=== PATIENT | female | born 1995 | race Caucasian/White ===

== ENCOUNTER 2017-09-02 10:34 | Emergency (ER) | payer MEDICAID ==
[~2017-09-02] VITALS: Ht 175.3 cm; Wt 136.1 kg
[~2017-09-02 10:34] MED LIST: AMOX500 PO; CODACEE120 PO; CRUTCH2 USE; HYDACE5 PO; MEDR150I IM; PENVK250 PO; PHENA100 PO; Percocet 5-3251 EACH PO; Prednisone20 MG PO; Veetids 500500 MG PO; Zithromax250 MG PO
[2017-09-02] MEDS ORDERED: SERT50 PO (10:55)
[2017-09-02] MEDS ORDERED: CLON.1 PO (10:55)
[2017-09-02] MEDS ORDERED: IBUP800 PO (11:54)
== END 2017-09-02 12:02 | disposition home or self-care (01) ==
LOC: ER 10:34
DX: S60.221A Contusion of right hand, initial encounter (principal); Z79.899 Other long term (current) drug therapy; W22.8XXA Striking against or struck by other objects, initial encounter
CPT/HCPCS: 73110; 73130; 99283

== ENCOUNTER 2018-04-19 19:41 | Inpatient (IN) | payer OTHER ==
[~2018-04-19] VITALS: Ht 175.3 cm; Wt 127.0 kg
[~2018-04-19 19:41] MED LIST changes: +CLON.1 PO; +IBUP800 PO; +SERT50 PO
[2018-04-19] MEDS ORDERED: TRAZ50 PO (20:06)
[2018-04-19 20:34] LABS: Source, Urine Voided
[2018-04-19 20:40] LABS: Appearance, Urine Clear (Clear); Bilirubin, Urine Neg (Neg); Blood, Urine Neg (Neg); Color, Urine Yellow (P-Yellow); Glucose Qualitative, Urine Neg (Neg); Ketones, Urine Neg (Neg); Leukocyte Esterase, Urine Neg (Neg); Nitrite, Urine Neg (Neg); Protein, Urine Neg (Neg); Specific Gravity, Urine 1.015 (1.003-1.022); Urobilinogen, Urine NORM (Normal)
[2018-04-19 20:52] LABS: U Amphetamine Screen Not Detected; U Barbituate Screen Not Detected; U Benzodiazapine Screen Not Detected; U Cocaine Screen Not Detected; U Methamphetamine Screen Not Detected
[2018-04-19 20:53] LABS: U Buprenorphine Screen Not Detected; U Cannabinoids Screen Not Detected; U Methadone Screen Not Detected; U Opiates Screen Not Detected; U Oxycodone Screen Not Detected; U Phencyclidine Screen Not Detected; U Propoxyphene Screen Not Detected
[2018-04-19 21:19] LABS: BASOPHILS ABSOLUTE AUTO 0.07 K/mm3 (0.00-0.23); BASOPHILS PERCENT AUTO 1 % (0-2); EOSINOPHILS ABSOLUTE AUTO 0.03 K/mm3 (0.00-0.68); EOSINOPHILS PERCENT AUTO 0 % (0-6); Hematocrit 48.3 % (33.0-51.0); Hemoglobin 15.8 g/dL (11.5-16.0); IMMATURE GRAN ABSOLUTE AUTO 0.02 K/mm3 (0.00-0.10); IMMATURE GRAN PERCENT AUTO 0 % (0-1); LYMPHOCYTES ABSOLUTE AUTO 1.82 K/mm3 (0.84-5.20); LYMPHOCYTES PERCENT AUTO 20 % (21-46); MONOCYTES ABSOLUTE AUTO 0.48 K/mm3 (0.16-1.47); MONOCYTES PERCENT AUTO 5 % (4-13); Mean Corpuscular HGB 30.5 pg (26.0-34.0); Mean Corpuscular HGB Conc 32.7 g/dL (31.5-36.5); Mean Corpuscular Volume 93 fL (80-100); NEUTROPHILS ABSOLUTE AUTO 6.52 K/mm3 (1.96-9.15); NEUTROPHILS PERCENT AUTO 73 % (41-73); Platelet Count 373 K/mm3 (150-400); RDW Coefficient Variation 11.9 % (11.7-14.2); Red Blood Cell Count 5.18 M/mm3 (3.80-5.20); White Blood Cell Count 8.94 K/mm3 (4.00-11.30)
[2018-04-19 21:43] LABS: Alanine Aminotransfer (ALT/SGP 77 U/L (12-78); Albumin, Blood 4.3 g/dL (3.4-5.0); Albumin/Globulin Ratio 0.9 (0.8-1.8); Alk Phos 146 U/L (50-136); Anion Gap 11 mmol/L (6-16); Aspartate Aminotrans (AST/SGOT 44 U/L (12-37); Bilirubin, Total 0.2 mg/dL (0.1-1.0); Blood Urea Nitrogen 3 mg/dL (8-24); Bun/Creatinine Ratio 5.7 (12.0-20.0); CO2, Blood 23 mmol/L (21-32); Chloride, Blood 110 mmol/L (98-108); Creatinine, Blood 0.53 mg/dL (0.40-1.00); Ethanol (Alcohol), Blood, Med 231 mg/dL; Globulin, Blood 4.7 g/dL (2.2-4.0); Glomerular Filtration Rate >60 (60-); Glucose, Blood 102 mg/dL (70-99); Potassium, Blood 3.4 mmol/L (3.5-5.5); Salicylate <1.7 mg/dL (2.8-20.0); Sodium, Blood 144 mmol/L (136-145)
[2018-04-19 21:48] LABS: Acetaminophen, Random <2.0 ug/mL (10.0-30.0)
[2018-04-20 01:34] LABS: Alanine Aminotransfer (ALT/SGP 73 U/L (12-78); Albumin, Blood 4.1 g/dL (3.4-5.0); Alk Phos 135 U/L (50-136); Anion Gap 9 mmol/L (6-16); Aspartate Aminotrans (AST/SGOT 42 U/L (12-37); Bilirubin, Total 0.3 mg/dL (0.1-1.0); Blood Urea Nitrogen 2 mg/dL (8-24); Bun/Creatinine Ratio 4.2 (12.0-20.0); CO2, Blood 23 mmol/L (21-32); CPK Creatine Kinase 126 U/L (26-193); Calcium, Blood 8.4 mg/dL (8.5-10.1); Chloride, Blood 110 mmol/L (98-108); Creatinine, Blood 0.48 mg/dL (0.40-1.00); Globulin, Blood 4.3 g/dL (2.2-4.0); Glomerular Filtration Rate >60 (60-); Glucose, Blood 106 mg/dL (70-99); Magnesium, Blood 2.3 mg/dL (1.6-2.4); Potassium, Blood 3.9 mmol/L (3.5-5.5); Sodium, Blood 142 mmol/L (136-145); Total Protein, Blood 8.4 g/dL (6.4-8.2)
[2018-04-20 06:07] LABS: International Normalized Ratio 0.93; Prothrombin Time Results 9.8 Sec (9.7-11.5)
== END 2018-04-21 14:10 | disposition home or self-care (01) | DRG 918 ==
LOC: ER 19:41 → ERHOLD 22:19
PROVIDERS: Emergency Medicine; Nurse Practitioner Acute Care; ADMIT Internal Medicine
DX: T43.222A Poisoning by selective serotonin reuptake inhibitors, intentional self-harm, initial encounter (principal); Z68.41 Body mass index [BMI] 40.0-44.9, adult; E66.01 Morbid (severe) obesity due to excess calories; F10.20 Alcohol dependence, uncomplicated; F32.9 Major depressive disorder, single episode, unspecified; F17.210 Nicotine dependence, cigarettes, uncomplicated; Z79.899 Other long term (current) drug therapy
CPT/HCPCS: 36415; 80053; 81003; 81025; 82550; 83735; 84443; 85025; 85610; 93005; 93010; 96365; 96366; 96375; 99285-25; G0480; J2060; J2405; J3411; J3475; J3480; J7030; J7042; Q3014

== ENCOUNTER 2018-07-10 22:58 | Observation (INO) | payer OTHER ==
[~2018-07-10] VITALS: Ht 175.3 cm; Wt 113.4 kg
[~2018-07-10 22:58] MED LIST changes: +TRAZ50 PO
[2018-07-10 23:45] LABS: Source, Urine Clean Catch
[2018-07-10] MEDS ORDERED: AMPDEX10CR PO (23:48)
[2018-07-10 23:52] LABS: Appearance, Urine Clear (Clear); Bilirubin, Urine Neg (Neg); Blood, Urine Neg (Neg); Color, Urine Yellow (P-Yellow); Glucose Qualitative, Urine Neg (Neg); Ketones, Urine Neg (Neg); Leukocyte Esterase, Urine Neg (Neg); Nitrite, Urine Neg (Neg); Protein, Urine 2+ (Neg); Specific Gravity, Urine 1.005 (1.003-1.022); Urobilinogen, Urine NORM (Normal)
[2018-07-10 23:58] LABS: U Amphetamine Screen DETECTED; U Barbituate Screen Not Detected; U Benzodiazapine Screen Not Detected; U Buprenorphine Screen Not Detected; U Cannabinoids Screen Not Detected; U Cocaine Screen Not Detected; U Methadone Screen Not Detected; U Methamphetamine Screen Not Detected; U Opiates Screen Not Detected; U Oxycodone Screen Not Detected; U Phencyclidine Screen Not Detected; U Propoxyphene Screen Not Detected
[2018-07-10 23:59] LABS: BASOPHILS ABSOLUTE AUTO 0.09 K/mm3 (0.00-0.23); BASOPHILS PERCENT AUTO 1 % (0-2); EOSINOPHILS ABSOLUTE AUTO 0.06 K/mm3 (0.00-0.68); EOSINOPHILS PERCENT AUTO 1 % (0-6); Hematocrit 42.9 % (33.0-51.0); Hemoglobin 14.4 g/dL (11.5-16.0); IMMATURE GRAN ABSOLUTE AUTO 0.03 K/mm3 (0.00-0.10); IMMATURE GRAN PERCENT AUTO 0 % (0-1); LYMPHOCYTES ABSOLUTE AUTO 2.66 K/mm3 (0.84-5.20); LYMPHOCYTES PERCENT AUTO 28 % (21-46); MONOCYTES PERCENT AUTO 7 % (4-13); Mean Corpuscular HGB 29.4 pg (26.0-34.0); Mean Corpuscular HGB Conc 33.6 g/dL (31.5-36.5); Mean Corpuscular Volume 88 fL (80-100); Mean Platelet Volume 10.3 fL (9.1-12.4); NEUTROPHILS ABSOLUTE AUTO 5.99 K/mm3 (1.96-9.15); NEUTROPHILS PERCENT AUTO 63 % (41-73); Platelet Count 328 K/mm3 (150-400); RDW Coefficient Variation 12.2 % (11.7-14.2); Red Blood Cell Count 4.89 M/mm3 (3.80-5.20); White Blood Cell Count 9.53 K/mm3 (4.00-11.30)
[2018-07-10 23:59] LABS: Bacteria Few /hpf; Red Blood Cells, Urine 0-2 /hpf (0-2); Squamous Epithelial Cells Not Seen /hpf (Few); White Blood Cells, Urine 0-2 /hpf (0-5)
[2018-07-11 00:29] LABS: Alanine Aminotransfer (ALT/SGP 39 U/L (12-78); Albumin, Blood 4.2 g/dL (3.4-5.0); Alk Phos 111 U/L (50-136); Anion Gap 11 mmol/L (6-16); Aspartate Aminotrans (AST/SGOT 24 U/L (12-37); Bilirubin, Total 0.3 mg/dL (0.1-1.0); Blood Urea Nitrogen 3 mg/dL (8-24); Bun/Creatinine Ratio 5.2 (12.0-20.0); CO2, Blood 23 mmol/L (21-32); Calcium, Blood 8.7 mg/dL (8.5-10.1); Chloride, Blood 111 mmol/L (98-108); Creatinine, Blood 0.58 mg/dL (0.40-1.00); Ethanol (Alcohol), Blood, Med 291 mg/dL; Globulin, Blood 4.4 g/dL (2.2-4.0); Glomerular Filtration Rate >60 (60-); Glucose, Blood 115 mg/dL (70-99); Potassium, Blood 3.4 mmol/L (3.5-5.5); Salicylate <1.7 mg/dL (2.8-20.0); Sodium, Blood 145 mmol/L (136-145); Total Protein, Blood 8.6 g/dL (6.4-8.2)
[2018-07-11 00:40] LABS: Acetaminophen, Random <2.0 ug/mL (10.0-30.0)
== END 2018-07-11 09:56 | disposition home or self-care (01) ==
LOC: ER 22:58 → EOR 22:59
PROVIDERS: Physician Assistant; ADMIT Emergency Medicine
DX: F32.9 Major depressive disorder, single episode, unspecified (principal); F10.129 Alcohol abuse with intoxication, unspecified; Z79.899 Other long term (current) drug therapy; Y90.8 Blood alcohol level of 240 mg/100 ml or more
CPT/HCPCS: 80053; 81001; 81025; 84443; 85025; 99285; G0378; G0480; Q0163

== ENCOUNTER 2018-10-19 00:19 | Observation (INO) | payer OTHER ==
[~2018-10-19] VITALS: Ht 175.3 cm; Wt 113.4 kg
[~2018-10-19 00:19] MED LIST changes: +AMPDEX10CR PO
[2018-10-19 00:41] LABS: BASOPHILS ABSOLUTE AUTO 0.06 K/mm3 (0.00-0.23); BASOPHILS PERCENT AUTO 1 % (0-2); EOSINOPHILS ABSOLUTE AUTO 0.05 K/mm3 (0.00-0.68); EOSINOPHILS PERCENT AUTO 1 % (0-6); Hematocrit 42.2 % (33.0-51.0); IMMATURE GRAN ABSOLUTE AUTO 0.03 K/mm3 (0.00-0.10); IMMATURE GRAN PERCENT AUTO 0 % (0-1); LYMPHOCYTES ABSOLUTE AUTO 2.86 K/mm3 (0.84-5.20); LYMPHOCYTES PERCENT AUTO 37 % (21-46); MONOCYTES ABSOLUTE AUTO 0.63 K/mm3 (0.16-1.47); MONOCYTES PERCENT AUTO 8 % (4-13); Mean Corpuscular HGB Conc 33.2 g/dL (31.5-36.5); Mean Corpuscular Volume 87 fL (80-100); Mean Platelet Volume 10.3 fL (9.1-12.4); NEUTROPHILS ABSOLUTE AUTO 4.16 K/mm3 (1.96-9.15); NEUTROPHILS PERCENT AUTO 53 % (41-73); Platelet Count 315 K/mm3 (150-400); RDW Coefficient Variation 12.4 % (11.7-14.2); RDW Standard Deviation 39.6 fL (35.1-46.3); Red Blood Cell Count 4.83 M/mm3 (3.80-5.20); White Blood Cell Count 7.79 K/mm3 (4.00-11.30)
[2018-10-19] MEDS ORDERED: ESCI20 PO (00:41)
[2018-10-19 00:54] LABS: Source, Urine Clean Catch
[2018-10-19 00:57] LABS: Appearance, Urine Hazy (Clear); Bilirubin, Urine Neg (Neg); Blood, Urine 2+ (Neg); Color, Urine Yellow (P-Yellow); Glucose Qualitative, Urine Neg (Neg); Ketones, Urine Neg (Neg); Leukocyte Esterase, Urine 3+ (Neg); Nitrite, Urine Neg (Neg); Protein, Urine 3+ (Neg); Urobilinogen, Urine NORM (Normal)
[2018-10-19 01:04] LABS: Alanine Aminotransfer (ALT/SGP 34 U/L (12-78); Albumin, Blood 3.9 g/dL (3.4-5.0); Alk Phos 115 U/L (50-136); Anion Gap 13 mmol/L (6-16); Aspartate Aminotrans (AST/SGOT 31 U/L (12-37); Bilirubin, Total 0.2 mg/dL (0.1-1.0); Blood Urea Nitrogen 2 mg/dL (8-24); Bun/Creatinine Ratio 3.6 (12.0-20.0); CO2, Blood 19 mmol/L (21-32); Calcium, Blood 8.3 mg/dL (8.5-10.1); Chloride, Blood 110 mmol/L (98-108); Creatinine, Blood 0.56 mg/dL (0.40-1.00); Ethanol (Alcohol), Blood, Med 297 mg/dL; Globulin, Blood 4.1 g/dL (2.2-4.0); Glomerular Filtration Rate >60 (60-); Glucose, Blood 185 mg/dL (70-99); Potassium, Blood 2.8 mmol/L (3.5-5.5); Salicylate <1.7 mg/dL (2.8-20.0); Sodium, Blood 142 mmol/L (136-145); Thyroxine (T4) 9.5 ug/dL (4.8-13.9)
[2018-10-19 01:14] LABS: U Amphetamine Screen DETECTED; U Barbituate Screen Not Detected; U Benzodiazapine Screen Not Detected; U Buprenorphine Screen Not Detected; U Cannabinoids Screen Not Detected; U Cocaine Screen Not Detected; U Methadone Screen Not Detected; U Methamphetamine Screen Not Detected; U Opiates Screen Not Detected; U Oxycodone Screen Not Detected; U Phencyclidine Screen Not Detected; U Propoxyphene Screen Not Detected
[2018-10-19 01:14] LABS: Acetaminophen, Random <2.0 ug/mL (10.0-30.0)
[2018-10-19 01:15] LABS: Amorphous Light (0-Heavy); Bacteria Few /hpf; Red Blood Cells, Urine 0-2 /hpf (0-2); Squamous Epithelial Cells Few /hpf (Few)
== END 2018-10-19 13:35 | disposition home or self-care (01) ==
LOC: ER 00:19 → EOR 00:20
PROVIDERS: ADMIT Emergency Medicine
DX: S61.512A Laceration without foreign body of left wrist, initial encounter (principal); F10.129 Alcohol abuse with intoxication, unspecified; R00.0 Tachycardia, unspecified; E87.6 Hypokalemia; F32.9 Major depressive disorder, single episode, unspecified; F41.1 Generalized anxiety disorder; E66.9 Obesity, unspecified; Z79.899 Other long term (current) drug therapy; X78.1XXA Intentional self-harm by knife, initial encounter
CPT/HCPCS: 12002; 80053; 81001; 81025; 84436; 84443; 85025; 87086; 90471; 90714; 93005; 93010; 96372-59; 99285-25; G0378; G0480; J1200; J1630; J2060; Q3014

== ENCOUNTER 2020-04-03 13:40 | Emergency (ER) | payer OTHER ==
[~2020-04-03] VITALS: Ht 175.3 cm; Wt 108.9 kg
[~2020-04-03 13:40] MED LIST changes: +ESCI20 PO
[2020-04-03] MEDS ORDERED: OXYC5 PO (14:05)
== END 2020-04-03 14:27 | disposition home or self-care (01) ==
LOC: ER 13:40
DX: S00.11XA Contusion of right eyelid and periocular area, initial encounter (principal); Z79.899 Other long term (current) drug therapy; V49.50XA Passenger injured in collision with unspecified motor vehicles in traffic accident, initial encounter; Y92.410 Unspecified street and highway as the place of occurrence of the external cause
CPT/HCPCS: 99284

== ENCOUNTER 2021-12-12 10:46 | Emergency (ER) | payer OTHER ==
[~2021-12-12] VITALS: Ht 175.3 cm; Wt 99.8 kg
[~2021-12-12 10:46] MED LIST changes: +OXYC5 PO
[2021-12-12] MEDS ORDERED: NEURONTIN300 MG PO (12:25)
[2021-12-12] MEDS ORDERED: Amphetamine Sal30 MG PO (12:25)
== END 2021-12-12 12:59 | disposition home or self-care (01) ==
LOC: ER 10:46
DX: T40.411A Poisoning by fentanyl or fentanyl analogs, accidental (unintentional), initial encounter (principal); R55 Syncope and collapse; F15.90 Other stimulant use, unspecified, uncomplicated; F32.A Depression, unspecified; Z79.899 Other long term (current) drug therapy
CPT/HCPCS: 93005; 93010; J2405

== ENCOUNTER → 2024-08-31 | Outpatient (CLI) | payer OTHER ==
[~2024-08-31] MED LIST changes: +Amphetamine Sal30 MG PO; +NEURONTIN300 MG PO
[2024-08-31 13:40] LABS: U Amphetamine Screen DETECTED; U Barbituate Screen Not Detected; U Benzodiazapine Screen Not Detected; U Buprenorphine Screen Not Detected; U Cannabinoids Screen Not Detected; U Cocaine Screen Not Detected; U Methadone Screen Not Detected; U Methamphetamine Screen Not Detected; U Opiates Screen Not Detected; U Oxycodone Screen Not Detected; U Phencyclidine Screen Not Detected
[2024-09-05 07:49] LABS: AMPHETAMINE,URN,QUANT 1185 ng/mL; MDA,URN,QUANT <200 ng/mL; MDEA,URN,QUANT <200 ng/mL; MDMA,URN,QUANT <200 ng/mL; METHAMPHETAMINE,URN,QUANT <200 ng/mL; PHENTERMINE,URN,QUANT <200 ng/mL
== END ==
LOC: LAB 10:23 → LAB SHORT 10:23
PROVIDERS: Nurse Practitioner Family
DX: Z79.899 Other long term (current) drug therapy (principal)
CPT/HCPCS: G0480

== ENCOUNTER → 2024-11-02 | Outpatient (CLI) | payer OTHER ==
[2024-11-02 12:10] LABS: U Amphetamine Screen DETECTED; U Barbituate Screen Not Detected; U Benzodiazapine Screen Not Detected; U Buprenorphine Screen Not Detected; U Cannabinoids Screen Not Detected; U Cocaine Screen Not Detected; U Methadone Screen Not Detected; U Methamphetamine Screen Not Detected; U Opiates Screen Not Detected; U Oxycodone Screen Not Detected; U Phencyclidine Screen Not Detected
[2024-11-05 17:00] LABS: AMPHETAMINE,URN,QUANT 1702 ng/mL; MDA,URN,QUANT <200 ng/mL; MDEA,URN,QUANT <200 ng/mL; MDMA,URN,QUANT <200 ng/mL; METHAMPHETAMINE,URN,QUANT <200 ng/mL; PHENTERMINE,URN,QUANT <200 ng/mL
== END | disposition home or self-care (01) ==
LOC: LAB 11:14 → LAB SHORT 11:14
PROVIDERS: Nurse Practitioner Family
DX: Z51.81 Encounter for therapeutic drug level monitoring (principal); Z79.899 Other long term (current) drug therapy